=== PATIENT | female | born 1945 | race Caucasian/White ===

== ENCOUNTER 2018-12-12 10:18 | Emergency (ER) | payer MEDICARE ==
[2018-12-12 11:11] LABS: #Basophils 0.1 thou/uL (0.0-0.2); #Eosinphils 0.3 thou/uL (0.0-0.7); #Lymphocytes 2.6 thou/uL (1.20-3.40); #Monocytes 0.6 thou/uL (0.11-0.59); %Basophils 0.9 % (0.0-1.0); %Eosinophils 4.2 % (0.0-10.0); %Lymphocytes 34.4 % (21.0-51.0); %Monocytes 8.3 % (0.0-10.0); %Neutrophils 52.2 % (42.0-75.0); Hemoglobin 13.9 g/dL (12.0-16.0); Mean Corpuscular HGB CONC 33.7 g/dL (32.0-36.0); Mean Corpuscular Hemoglobin 30.9 pg (27.0-31.0); Mean Corpuscular Volume 91.5 fL (78.0-98.0); Platelet Count 259 thou/uL (130-400); RBC Distribution Width 11.9 % (11.5-14.5); White Blood Cell (WBC) Count 7.6 thou/uL (4.8-10.8)
--- NOTE | 2018-12-12 11:19 | RAD ---
EXAM: Chest Two Views 12/12/2018 11:16 AM HISTORY: Chest pain COMPARISON: Prior exam dated October 21, 2016 FINDINGS: Heart: Normal in size and contour. Pulmonary vessels: Normal. Costophrenic angles: Clear. Lungs: No confluent pneumonia, overt edema, pleural effusion, or other acute process. Pneumothorax: There is a skinfold overlying the right lower hemithorax on the AP projection. No defin ite pneumothorax is demonstrated. Osseous structures:There is multilevel spondylosis of the thoracic spine. There is postsurgical contreras e of a right rotator cuff repair. Additional findings: There is cholecystectomy clips within the right upper quadrant. IMPRESSION: No significant acute intrathoracic disease.
[2018-12-12 11:36] LABS: ALT (SGPT) 13 U/L (8-55); AST (SGOT) 14 U/L (5-34); Albumin 4.2 g/dL (3.4-4.8); Alkaline Phosphatase 73 U/L (40-110); Anion Gap 14 mmol/L (10-20); BUN (Urea Nitrogen) 19 mg/dL (9.8-20.1); Bilirubin, Total 0.6 mg/dL (0.2-1.2); CK (CPK) 73 U/L (29-168); Calc. Creatinine Clearance 0 mL/min (70-130); Calcium 9.9 mg/dL (7.8-10.44); Carbon Dioxide 21 mmol/L (23-31); Chloride 104 mmol/L (98-107); Estimated GFR-MDRD 53; Glucose 92 mg/dL (83-110); Potassium 4.4 mmol/L (3.5-5.1); Protein, Total 7.2 g/dL (6.0-8.3); Sodium 135 mmol/L (136-145)
== END 2018-12-12 16:00 | disposition home or self-care (01) ==
LOC: ERS 10:18
DX: R07.9 Chest pain, unspecified (principal); E78.5 Hyperlipidemia, unspecified; I10 Essential (primary) hypertension; F17.210 Nicotine dependence, cigarettes, uncomplicated; Z79.899 Other long term (current) drug therapy; Z79.82 Long term (current) use of aspirin
CPT/HCPCS: 36415; 71046; 80053; 82550; 84484; 85025; 93005

== ENCOUNTER 2019-01-11 05:54 | Day surgery (SDC) | payer MEDICARE ==
[2019-01-10 16:28] VITALS: BMI 36.8
[2019-01-11] MEDS ORDERED: Diazepam 5 MG TAB ONE (06:21)
[2019-01-11] MEDS ORDERED: Lidocaine 1% (PF) 30 ML VIAL ONE (06:40)
[2019-01-11] MEDS ORDERED: Nitroglycerin 100MG/250ML BOT 250 ML ONE (06:45)
[2019-01-11] MEDS ORDERED: Heparin 10,000 UNITS/1 ML VIAL ONE (06:46)
[2019-01-11] MEDS ORDERED: Verapamil 5 MG/2 ML VIAL ONE (06:48)
[2019-01-11] MEDS ORDERED: Fentanyl 100 MCG/2 ML VIAL ONE (06:48)
[2019-01-11] MEDS ORDERED: Midazolam HCl 2 mg/2 ml Vial ONE (06:48)
[2019-01-11] MEDS ORDERED: Iopamidol 370 76% 100 ML VIAL ONE (12:00)
== END 2019-01-11 10:08 | disposition home or self-care (01) ==
LOC: CCL 05:54
PROVIDERS: ATTEND Internal Medicine Cardiovascular Disease
PROC: 4A023N7 Measurement of Cardiac Sampling and Pressure, Left Heart, Percutaneous Approach (ICD-10-PCS; principal; 2019-01-11)
PROC: B2111ZZ Fluoroscopy of Multiple Coronary Arteries using Low Osmolar Contrast (ICD-10-PCS; 2019-01-11)
DX: I47.2 Ventricular tachycardia (principal); I27.20 Pulmonary hypertension, unspecified; I25.10 Atherosclerotic heart disease of native coronary artery without angina pectoris; I10 Essential (primary) hypertension; K21.9 Gastro-esophageal reflux disease without esophagitis; E78.5 Hyperlipidemia, unspecified; Z87.891 Personal history of nicotine dependence; Z79.82 Long term (current) use of aspirin; Z79.899 Other long term (current) drug therapy; Z88.8 Allergy status to other drugs, medicaments and biological substances
CPT/HCPCS: 93458; C1769; J1644; J2001; J2250; J3010; Q9967

== ENCOUNTER 2020-02-25 06:23 | Outpatient (CLI) | payer MEDICARE ==
[2020-02-25 11:29] LABS: Bilirubin Neg (Negative); Blood, Urine 25 (Negative); Clarity Slightly Cloudy (Clear); Glucose, Urine (Dipstick) Normal (Negative); Ketone, Urine Negative (Negative); Leukocyte 100 (Negative); Nitrite Positive (Negative); Protein, Urine (Dipstick) 15 mg/dl (Neg-Trace); Specific Gravity, Urine 1.025 (1.002-1.036); Urobilinogen Normal mg/dL (Less than 2)
[2020-02-25 11:32] LABS: #Basophils 0.1 10x3/uL (0.0-0.2); #Eosinphils 0.1 10x3/uL (0.0-0.5); #Monocytes 0.7 10x3/uL (0.0-1.1); #Neutrophils 4.1 10x3/uL (1.5-8.4); %Basophils 0.8 % (0.0-2.0); %Eosinophils 1.6 % (0.0-6.0); %Lymphocytes 32.9 % (18.0-47.0); %Monocytes 8.9 % (0.0-10.0); %Neutrophils 55.3 % (40.0-75.0); Mean Corpuscular Hemoglobin 30.6 PG (27.0-33.0); Mean Corpuscular Volume 95.6 fl (80.0-100.0); Mean Platelet Volume 9.8 fl (7.4-10.4); Platelet Count 243 10x3/uL (130-400); RBC Distribution Width 12.8 % (11.5-14.5); Red Blood Cell (RBC) Count 4.57 10x6/uL (3.90-5.20); White Blood Cell (WBC) Count 7.4 10x3/uL (4.5-11.0)
[2020-02-25 11:41] LABS: Anion Gap 15 mmol/L (10-20); BUN (Urea Nitrogen) 17 mg/dL (9.8-20.1); Calc. Creatinine Clearance 0 mL/min (70-130); Calcium 9.2 mg/dL (7.8-10.44); Carbon Dioxide 25 mmol/L (23-31); Chloride 107 mmol/L (98-107); Glucose 110 mg/dL (83-110); Potassium 4.2 mmol/L (3.5-5.1); Sodium 143 mmol/L (136-145)
[2020-02-25 12:18] LABS: Bacteria/HPF 3+ HPF (None Seen); WBC/HPF 21-50 HPF (0-3)
[2020-02-25 21:56] LABS: SARS-CoV-2 MS2 Positive; SARS-CoV-2 N Gene Negative; SARS-CoV-2 S Gene Negative; SARS-CoV-2 by NAA Not Detected (NotDetected); SARS-CoV-2 orf1ab Negative
== END 2020-02-25 06:24 | disposition home or self-care (01) ==
LOC: LABBT 06:23
PROVIDERS: ATTEND Orthopaedic Surgery Hand Surgery
DX: Z01.818 Encounter for other preprocedural examination (principal); Z01.812 Encounter for preprocedural laboratory examination; Z20.828 Contact with and (suspected) exposure to other viral communicable diseases; M18.11 Unilateral primary osteoarthritis of first carpometacarpal joint, right hand
CPT/HCPCS: 80048; 81001; 85025; 93005; U0003; 87635; 93010

== ENCOUNTER 2020-02-28 09:45 | Day surgery (SDC) | payer MEDICARE ==
[2020-02-27 13:37] VITALS: BMI 35.2
[2020-02-28] MEDS ORDERED: Fentanyl 100 MCG/2 ML VIAL ONE ×2 (10:01→10:17)
[2020-02-28] MEDS ORDERED: Bacitracin Zinc Ointment 30 gm TUBE ONE (10:15)
[2020-02-28] MEDS ORDERED: Betamet Acet/Betamet Na Ph 30 MG/5 ML VIAL ONE (10:15)
[2020-02-28] MEDS ORDERED: Sodium Chloride 0.9% 10 ML ONE (10:15)
[2020-02-28] MEDS ORDERED: Midazolam HCl 2 mg/2 ml Vial ONE (10:17)
[2020-02-28] MEDS ORDERED: Bupivacaine HCl 0.5%/Epinephrine 1:200,000/PF 30 ml Vial ONE (10:21)
[2020-02-28] MEDS ORDERED: PHENYLEPHRINE-NS 100 MCG/ML 10 ML SYRINGE ONE ×2 (10:21→12:18)
[2020-02-28] MEDS ORDERED: Ketorolac Tromethamine 30 MG/ML VIAL ONE (10:21)
[2020-02-28] MEDS ORDERED: Lidocaine 1% PF 5 ML VIAL ONE (10:21)
[2020-02-28] MEDS ORDERED: ePHEDrine 50 MG/ML VIAL ONE (10:21)
[2020-02-28] MEDS ORDERED: Ondansetron PF 4 MG/2 ML Vial ONE (10:21)
[2020-02-28] MEDS ORDERED: PROPOFOL 200 MG/20 ML VIAL ONE (10:21)
[2020-02-28] MEDS ORDERED: Dexamethasone 20 MG/5 ML VIAL ONE (10:21)
--- NOTE | 2020-02-28 14:24 | RAD ---
EXAM: 5 fluoroscopic intraoperative spot images of the right wrist DATE: 02/28/2020 12:21 PM INDICATION: Right wrist arthroplasty COMPARISON: None. FINDIN submitted fluoroscopic spot images of the right wrist from an intraoperative right wrist arthroplasty was submitted. The total fluoroscopic time was 42 seconds. Submitted images demonstrate wire cannulization of the thumb and index finger metacarpal with an interval trapeziectom y. IMPRESSION:Intraoperative C-arm evaluation for first CMC arthroplasty
--- NOTE | 2020-03-02 14:20 | OP ---
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 Flexor carpi radialis transfer, forearm. 2. Ligament reconstruction and tendon interposition with carpometacarpal right thumb arthroplasty. 3. C-arm supervision. TOURNIQUET TIME: 117 minutes. ESTIMATED BLOOD LOSS: 20 mL. COMPLICATIONS: None. DESCRIPTION OF PROCEDURE: After successful general endotracheal anesthesia, the limb was prepped and draped. The patient also had a block. The patient had the standard harvest incisions for the flexor carpi radialis and the tendon transfer outlined obliquely along its course in the distal-third and mid-third of the forearm, left side. We outlined a J-shaped curvilinear incision at the junction of the palmar and dorsal skin over the thumb carpometacarpal joint. The tourniquet was inflated. We carried this incision through skin and subcutaneous tissue and obtained the interval between the median nerve and radial nerve distributions, sparing the superficial radial nerve branches on visualization. We then made an incision between the abductor and the short extensor on the capsule, tagged this capsule with an incision and then dissected free the capsule and thenar muscle insertions to protect them for later. We also exposed the entire thumb CMC joint where we saw over 80% loss of chondral surface on both sides with large marginal osteophytes seen on both sides of the joint and sclerosis, which eventually would lead to more pain. For this reason, we dissected free of all soft tissue around the trapezium, we did a complete trapeziectomy. We then localized the flexor carpi radialis tendon within the wrist, protected it from harm as we the trapezium. We then placed the posterior capsule on the ulnar aspect of the thumb was utilized to place a deep 3-0 Prolene suture for later use to anchor the anchovy for weave interposition techniques of flexor carpi radialis transfer. We then removed all osteophytes from the thumb metacarpal base, rotated the thumb with the fingernail/nail bed parallel to the table and then visualized and protected the extensor brevis and the superficial radial nerve branch. We drilled a cannulated guidewire obliquely in approximately a 60-degree angle from the lateral wall into the junction of the chondral and metaphyseal surface point, it was a flexor carpi radialis insertion. We confirmed this was excellent in frontal and sagittal planes and then we began to drill over this. First, we drilled a 2.5 cm, then 3.5 cm hole and then removed all debris inside. We then proceeded to harvest the flexor carpi radialis tendon to the 2 incisions outlined in the first portion of this operative description. We elevated it, we freed up the whole flexor carpi radialis, denuded of all muscle and then pulled it into the wrist. At this point, the tendon was further prepared and we removed approximately 20% of the tendon mass in a longitudinal incision and then we were able to pass it through the tunnel in the thumb that passes underneath the extensor and into the remnant of the old carpometacarpal joint, but the trapezium was gone. There were no scaphoid osteophytes. Scaphoid is now covered. We then under appropriate tension, kept on the tendon construct to the base of the metacarpal. We were able to place 2 K-wires in the carpometacarpal articulation without violation of any soft tissue structures. C-arm confirmed this and we bent the wires and kept them protruding just slightly under the skin. We then tied the anchovy of K-wire and pin and then tightened two sutures on the sidewall of the thumb. The patient then had the appropriately tense and now appropriate position via C-arm. Base of the thumb carpometacarpal had multiple sutures passed to the sidewall of the base of the thumb remnant, the chondral surface on the scaphoid, the base of the thumb metacarpal. We made sure at this point that the suture harvested FCR now had enough to be placed in anchovy position and we tied the FCR in 6 [address] to prevent migration and create a cushion effect. We then performed the anchovy with Joshua needles and 3-0 Prolene, we tied the 3-0 Prolene that was already in the patient from earlier during the and released the tourniquet. We obtained hemostasis. We closed the capsule of the scaphotrapezium on itself which explains the excellent tension. The anchovy was completed and it was tied. Hemostasis was completely obtained, we closed the joint capsule of the carpometacarpal joint remnant with running 2-0 Vicryl as we did the portion of the remaining . The incision was now closed by first reapproximating the capsular structures to their appropriate origin while we still had the musculofascial insertion attached. Once this was closed, the wire was reaffirmed on C-arm to be in excellent position, it was bent and pushed in slightly. Same as it had been . A bulky dressing was applied and the wounds at the forearm were closed with interrupted 4-0 nylon and the patient left the operating room without evidence of anesthetic or operative complication. Job ID: [id number]
== END 2020-02-28 16:20 | disposition home or self-care (01) ==
LOC: SDC 09:45
PROVIDERS: ATTEND Orthopaedic Surgery Hand Surgery
PROC: 0LU607Z Supplement Left Lower Arm and Wrist Tendon with Autologous Tissue Substitute, Open Approach (ICD-10-PCS; principal; 2020-02-28)
PROC: 0RRT07Z Replacement of Left Carpometacarpal Joint with Autologous Tissue Substitute, Open Approach (ICD-10-PCS; 2020-02-28)
DX: M18.0 Bilateral primary osteoarthritis of first carpometacarpal joints (principal); F17.200 Nicotine dependence, unspecified, uncomplicated; I10 Essential (primary) hypertension; Z79.01 Long term (current) use of anticoagulants; Z79.82 Long term (current) use of aspirin; Z79.899 Other long term (current) drug therapy; Z88.8 Allergy status to other drugs, medicaments and biological substances
CPT/HCPCS: 25310; 25447; 73110; 76000; 88307; 88311; C1713; J0690; J0702; J1100; J1885; J2250; J2405; J2704; J3010; J3490

== ENCOUNTER 2020-12-21 10:05 | Outpatient (CLI) | payer MEDICARE | END 2020-12-21 10:06 | disposition home or self-care (01) | LOC: CTENTCT 10:05 | PROVIDERS: ATTEND Student in an Organized Health Care Education/Training Program | DX: J34.2 Deviated nasal septum (principal) | CPT/HCPCS: 70486 ==

== ENCOUNTER 2021-07-24 22:05 | Observation (INO) | payer MEDICARE ==
[2021-07-24] MEDS ORDERED: Acetaminophen 650 MG Suppository PR PRN (22:31)
[2021-07-24] MEDS ORDERED: Acetaminophen 325 MG TAB PO PRN (22:31)
[2021-07-24] MEDS ORDERED: Ondansetron PF 4 MG/2 ML Vial IVP PRN (22:31)
[2021-07-24] MEDS ORDERED: Ondansetron ODT 4 MG TAB PO PRN (22:31)
[2021-07-24] MEDS ORDERED: Aspirin 81 mg Enteric Coated Tablet PO SCH (22:45)
[2021-07-24 23:28] VITALS: BMI 38.2
[2021-07-25] MEDS ORDERED: tiZANidine HCl 4 MG TAB PO PRN (00:05)
[2021-07-25] MEDS ORDERED: Topiramate 25 MG TAB PO PRN (00:05)
[2021-07-25] MEDS ORDERED: traMADol HCl 50 MG TAB PO PRN (00:05)
[2021-07-25] MEDS ORDERED: Apixaban 5 MG TAB PO SCH (00:15)
[2021-07-25] MEDS ORDERED: Dronedarone HCl 400 MG TAB PO SCH (00:15)
[2021-07-25 05:22] LABS: #Eosinphils 0.2 thou/uL (0.0-0.7); #Monocytes 0.8 thou/uL (0.11-0.59); #Neutrophils 3.5 thou/uL (1.40-6.50); %Basophils 0.5 % (0.0-1.0); %Eosinophils 3.3 % (0.0-10.0); %Lymphocytes 39.7 % (21.0-51.0); %Monocytes 10.9 % (0.0-10.0); %Neutrophils 45.6 % (42.0-75.0); Hemoglobin 13.5 g/dL (12.0-16.0); Mean Corpuscular HGB CONC 32.3 g/dL (32.0-36.0); Mean Corpuscular Hemoglobin 31.6 pg (27.0-31.0); Mean Corpuscular Volume 97.9 fL (78.0-98.0); Mean Platelet Volume 7.1 fL (7.4-10.4); Platelet Count 231 thou/uL (130-400); RBC Distribution Width 12.2 % (11.5-14.5); Red Blood Cell (RBC) Count 4.26 mill/uL (4.20-5.40); White Blood Cell (WBC) Count 7.6 thou/uL (4.8-10.8)
[2021-07-25 05:47] LABS: Anion Gap 14 mmol/L (10-20); BUN (Urea Nitrogen) 13 mg/dL (9.8-20.1); Calc. Creatinine Clearance 78 mL/min (70-130); Calcium 9.1 mg/dL (7.8-10.44); Carbon Dioxide 26 mmol/L (23-31); Cardiac Risk 2.8 (Less than 4.5); Chloride 108 mmol/L (98-107); Cholesterol 139 mg/dl (< 200 Desired); Glucose 91 mg/dL (83-110); HDL Cholesterol 50 mg/dL (>60 Neg Risk); LDL Cholesterol, Calculated 65 mg/dL; Sodium 143 mmol/L (136-145); Triglycerides 122 mg/dL (Less than 150)
[2021-07-25 07:54] LABS: Hemoglobin A1c 5.2 % (4.0-6.0)
[2021-07-25] MEDS ORDERED: Aspirin 81 mg Enteric Coated Tablet PO SCH (09:00)
[2021-07-25] MEDS: Apixaban 5 MG TAB PO SCH ×2 (09:24→21:54)
[2021-07-25] MEDS: Ascorbic Acid 500 mg Chewable Tablet PO SCH (09:24)
[2021-07-25] MEDS: Dronedarone HCl 400 MG TAB PO SCH ×2 (09:25→21:56)
[2021-07-25] MEDS: Aspirin 81 mg Enteric Coated Tablet PO SCH (09:25)
[2021-07-25] MEDS: Venlafaxine HCl XR 150 MG CAP PO SCH ×2 (09:26→21:54)
[2021-07-25] MEDS: Cholecalciferol (Vitamin D3) 400 UNITS TAB PO SCH (09:26)
[2021-07-25] MEDS ORDERED: Atorvastatin Calcium 40 MG TAB PO SCH (21:00)
[2021-07-25 22:39] LABS: SARS-CoV-2 PCR by NAA Not Detected (NotDetected)
[2021-07-26 08:15] VITALS: BP 140/81; TEMP 98.2
[2021-07-26] MEDS: Venlafaxine HCl XR 150 MG CAP PO SCH (09:24)
[2021-07-26] MEDS: Apixaban 5 MG TAB PO SCH (09:24)
[2021-07-26] MEDS: Ascorbic Acid 500 mg Chewable Tablet PO SCH (09:24)
[2021-07-26] MEDS: Dronedarone HCl 400 MG TAB PO SCH (09:24)
[2021-07-26] MEDS: Aspirin 81 mg Enteric Coated Tablet PO SCH (09:24)
[2021-07-26] MEDS: Cholecalciferol (Vitamin D3) 400 UNITS TAB PO SCH (09:24)
== END 2021-07-26 11:05 | disposition home or self-care (01) ==
LOC: NEURO 22:05
PROVIDERS: ADMIT Family Medicine; ATTEND Family Medicine
DX: H53.2 Diplopia (principal); I48.91 Unspecified atrial fibrillation; R40.0 Somnolence; I11.9 Hypertensive heart disease without heart failure; E78.5 Hyperlipidemia, unspecified; F17.210 Nicotine dependence, cigarettes, uncomplicated; I08.1 Rheumatic disorders of both mitral and tricuspid valves; Z79.899 Other long term (current) drug therapy; Z88.8 Allergy status to other drugs, medicaments and biological substances; Z20.822 Contact with and (suspected) exposure to COVID-19
CPT/HCPCS: 70551; 80048; 80061; 83036; 84443; 85025; 93005; 93306; G0378 ×3; U0003; U0005; 36415; 93010

== ENCOUNTER 2021-09-30 10:13 | Outpatient (CLI) | payer MEDICARE | END 2021-09-30 10:14 | disposition home or self-care (01) | LOC: BICRAD 10:13 | PROVIDERS: ATTEND Internal Medicine | DX: I48.19 Other persistent atrial fibrillation (principal) | CPT/HCPCS: 71046 ==

== ENCOUNTER 2021-10-01 06:01 | Day surgery (SDC) | payer MEDICARE ==
[2021-09-29 14:34] VITALS: BMI 35.9
[2021-10-01] MEDS ORDERED: PROPOFOL 20 ML ONE (06:50)
[2021-10-01] MEDS ORDERED: Lidocaine 1% PF 5 ML VIAL ONE (07:13)
[2021-10-01 07:16] LABS: Anion Gap 19 mmol/L (10-20); BUN (Urea Nitrogen) 17 mg/dL (9.8-20.1); Calc. Creatinine Clearance 70 mL/min (70-130); Calcium 9.3 mg/dL (7.8-10.44); Carbon Dioxide 20 mmol/L (23-31); Chloride 106 mmol/L (98-107); Estimated GFR 54; Glucose 104 mg/dL (83-110); Potassium 3.8 mmol/L (3.5-5.1); Sodium 141 mmol/L (136-145)
== END 2021-10-01 08:45 | disposition home or self-care (01) ==
LOC: SDC 06:01
PROVIDERS: ATTEND Internal Medicine Cardiovascular Disease
PROC: 5A2204Z Restoration of Cardiac Rhythm, Single (ICD-10-PCS; principal; 2021-10-01)
DX: I48.19 Other persistent atrial fibrillation (principal); I25.10 Atherosclerotic heart disease of native coronary artery without angina pectoris; I10 Essential (primary) hypertension; E78.5 Hyperlipidemia, unspecified; K21.9 Gastro-esophageal reflux disease without esophagitis; Z79.01 Long term (current) use of anticoagulants; Z79.82 Long term (current) use of aspirin; Z79.899 Other long term (current) drug therapy; Z88.8 Allergy status to other drugs, medicaments and biological substances; Z86.73 Personal history of transient ischemic attack (TIA), and cerebral infarction without residual deficits
CPT/HCPCS: 80048; 92960; 93005; 93010; J2704

== ENCOUNTER 2022-02-15 08:13 | Observation (INO) | payer MEDICARE ==
[2022-02-15] MEDS ORDERED: Acetaminophen 500 MG TAB ONE (09:02)
[2022-02-15] MEDS ORDERED: Protamine Sulfate 50 MG/5 ML VIAL ONE (10:59)
[2022-02-15] MEDS ORDERED: Heparin 25,000 units/D5W 500 ML ONE (11:00)
[2022-02-15] MEDS ORDERED: Heparin 10,000 UNITS/ 10 ML VIAL ONE (11:00)
[2022-02-15] MEDS ORDERED: fentaNYL PF 100 MCG/2 ML SYRINGE ONE (11:25)
[2022-02-15] MEDS ORDERED: Phenylephrine 10 MG/ML VIAL ONE (11:30)
[2022-02-15] MEDS ORDERED: Rocuronium Bromide 10 MG/ML (10ML VIAL) ONE (11:30)
[2022-02-15] MEDS ORDERED: Dexamethasone 20 MG/5 ML VIAL ONE (11:30)
[2022-02-15] MEDS ORDERED: PROPOFOL 200 MG/20 ML VIAL ONE (11:30)
[2022-02-15] MEDS ORDERED: Ondansetron PF 4 MG/2 ML Vial ONE (11:30)
[2022-02-15] MEDS ORDERED: NEOSTIGMINE 3 MG/3 ML SYR 3 MG/3 ML SYRINGE ONE (11:30)
[2022-02-15] MEDS ORDERED: Glycopyrrolate 0.2 MG/ML 5 ML SYRINGE ONE (11:30)
[2022-02-15] MEDS ORDERED: HYDROcodone/Acetaminophen 5/325 mg Tablet PO PRN (17:03)
[2022-02-15] MEDS ORDERED: Acetaminophen 325 MG TAB PO PRN (17:03)
[2022-02-15] MEDS ORDERED: HYDROcodone/Acetaminophen 10/325 mg Tablet PO PRN (17:04)
[2022-02-15] MEDS ORDERED: cloNIDine 0.1 MG TAB PO PRN (17:22)
[2022-02-15] MEDS ORDERED: tiZANidine HCl 4 MG TAB PO PRN (17:26)
[2022-02-15] MEDS ORDERED: Topiramate 25 MG TAB PO PRN (17:27)
[2022-02-15 18:34] VITALS: BMI 38.0
[2022-02-15] MEDS: Venlafaxine HCl XR 150 MG CAP PO SCH (20:04)
[2022-02-15] MEDS: Apixaban 5 MG TAB PO SCH (20:04)
[2022-02-15] MEDS ORDERED: Atorvastatin Calcium 40 MG TAB PO SCH (21:00)
[2022-02-15] MEDS ORDERED: Aspirin 81 mg Enteric Coated Tablet PO SCH (21:00)
[2022-02-15] MEDS: traMADol HCl 50 MG TAB PO PRN (21:48)
[2022-02-16] MEDS: traMADol HCl 50 MG TAB PO PRN (06:00)
[2022-02-16] MEDS ORDERED: Furosemide 40 MG TAB PO SCH (09:00)
[2022-02-16] MEDS ORDERED: Potassium Chloride 20 MEQ TAB PO SCH (09:00)
[2022-02-16] MEDS ORDERED: Ascorbic Acid 500 mg Chewable Tablet PO SCH (09:00)
[2022-02-16] MEDS ORDERED: Cholecalciferol (Vitamin D3) 400 UNITS TAB PO SCH (09:00)
[2022-02-16] MEDS ORDERED: Metoprolol Tartrate 25 MG TAB PO SCH (09:00)
[2022-02-16] MEDS: Apixaban 5 MG TAB PO SCH (09:02)
[2022-02-16] MEDS: Venlafaxine HCl XR 150 MG CAP PO SCH (09:02)
[2022-02-16 10:03] LABS: Hemoglobin 12.6 g/dL (12.0-16.0); Mean Corpuscular HGB CONC 32.5 g/dL (32.0-36.0); Mean Corpuscular Hemoglobin 32.2 pg (27.0-31.0); Mean Corpuscular Volume 98.9 fl (78.0-98.0); Mean Platelet Volume 7.3 fL (7.4-10.4); Platelet Count 236 10x3/uL (130-400); RBC Distribution Width 13.1 % (11.5-14.5); Red Blood Cell (RBC) Count 3.92 mill/uL (4.20-5.40); White Blood Cell (WBC) Count 12.8 10x3/uL (4.8-10.8)
[2022-02-16 11:38] VITALS: BP 129/60; TEMP 97.6
== END 2022-02-16 14:05 | disposition home or self-care (01) ==
LOC: SDC 08:13 → 2SW 18:38
PROVIDERS: ADMIT Internal Medicine Cardiovascular Disease; ATTEND Internal Medicine Cardiovascular Disease
PROC: B246ZZ4 Ultrasonography of Right and Left Heart, Transesophageal (ICD-10-PCS; principal; 2022-02-15)
PROC: 02583ZZ Destruction of Conduction Mechanism, Percutaneous Approach (ICD-10-PCS; 2022-02-15)
PROC: 02K83ZZ Map Conduction Mechanism, Percutaneous Approach (ICD-10-PCS; 2022-02-15)
PROC: 4A023FZ Measurement of Cardiac Rhythm, Percutaneous Approach (ICD-10-PCS; 2022-02-15)
PROC: 4A0234Z Measurement of Cardiac Electrical Activity, Percutaneous Approach (ICD-10-PCS; 2022-02-15)
DX: I48.0 Paroxysmal atrial fibrillation (principal); I48.3 Typical atrial flutter; I08.1 Rheumatic disorders of both mitral and tricuspid valves; I11.9 Hypertensive heart disease without heart failure; I47.20 Ventricular tachycardia, unspecified; E78.5 Hyperlipidemia, unspecified; I25.10 Atherosclerotic heart disease of native coronary artery without angina pectoris; K21.9 Gastro-esophageal reflux disease without esophagitis; F17.210 Nicotine dependence, cigarettes, uncomplicated; Z79.01 Long term (current) use of anticoagulants; Z79.82 Long term (current) use of aspirin; Z79.899 Other long term (current) drug therapy; Z88.8 Allergy status to other drugs, medicaments and biological substances; Z90.49 Acquired absence of other specified parts of digestive tract; Z95.818 Presence of other cardiac implants and grafts; Z20.822 Contact with and (suspected) exposure to COVID-19
CPT/HCPCS: 85027; 85347 ×2; 93005 ×2; 93312; 93655; 93656; C1730; C1731; C1732; C1759; C1760; C1769 ×2; C1894 ×2; C2630; U0003; U0005; 36415; 93010; J1100; J1644; J2370; J2405; J2704; J2720

== ENCOUNTER 2022-07-07 06:08 | Day surgery (SDC) | payer MEDICARE ==
[2022-07-06 10:51] VITALS: BMI 35.3
[2022-07-07] MEDS ORDERED: Lidocaine 1% PF 5 ML VIAL ONE (07:24)
[2022-07-07] MEDS ORDERED: PROPOFOL 200 MG/20 ML VIAL ONE (07:24)
== END 2022-07-07 08:29 | disposition home or self-care (01) ==
LOC: SDC 06:08
PROVIDERS: ATTEND Internal Medicine Cardiovascular Disease
PROC: 5A2204Z Restoration of Cardiac Rhythm, Single (ICD-10-PCS; principal; 2022-07-07)
DX: I48.4 Atypical atrial flutter (principal); I48.19 Other persistent atrial fibrillation; I10 Essential (primary) hypertension; E78.5 Hyperlipidemia, unspecified; K21.9 Gastro-esophageal reflux disease without esophagitis; I25.10 Atherosclerotic heart disease of native coronary artery without angina pectoris; F17.200 Nicotine dependence, unspecified, uncomplicated; Z86.73 Personal history of transient ischemic attack (TIA), and cerebral infarction without residual deficits; Z79.01 Long term (current) use of anticoagulants; Z79.82 Long term (current) use of aspirin; Z79.899 Other long term (current) drug therapy; Z88.8 Allergy status to other drugs, medicaments and biological substances; Z95.818 Presence of other cardiac implants and grafts
CPT/HCPCS: 92960; 93005; 93010; J2704

== ENCOUNTER 2022-11-29 17:00 | Outpatient (CLI) | payer MEDICARE | END 2022-11-29 17:01 | disposition home or self-care (01) | LOC: SLEEPLAB 17:00 | PROVIDERS: ATTEND Physician Assistant | DX: G47.33 Obstructive sleep apnea (adult) (pediatric) (principal); R53.83 Other fatigue; E66.9 Obesity, unspecified; R06.83 Snoring; F41.9 Anxiety disorder, unspecified; G47.00 Insomnia, unspecified; F32.A Depression, unspecified; I11.0 Hypertensive heart disease with heart failure; I50.9 Heart failure, unspecified; K21.9 Gastro-esophageal reflux disease without esophagitis; I25.10 Atherosclerotic heart disease of native coronary artery without angina pectoris; I48.0 Paroxysmal atrial fibrillation; E78.5 Hyperlipidemia, unspecified; I83.90 Asymptomatic varicose veins of unspecified lower extremity; I47.20 Ventricular tachycardia, unspecified; I49.3 Ventricular premature depolarization; Z68.34 Body mass index [BMI] 34.0-34.9, adult | CPT/HCPCS: 95810 ==

== ENCOUNTER 2023-01-10 17:00 | Outpatient (CLI) | payer MEDICARE | END 2023-01-10 17:01 | disposition home or self-care (01) | LOC: SLEEPLAB 17:00 | PROVIDERS: ATTEND Physician Assistant | DX: G47.33 Obstructive sleep apnea (adult) (pediatric) (principal); R53.83 Other fatigue; E66.9 Obesity, unspecified; R06.83 Snoring; F41.9 Anxiety disorder, unspecified; G47.00 Insomnia, unspecified; F32.A Depression, unspecified; I11.0 Hypertensive heart disease with heart failure; I50.9 Heart failure, unspecified; I49.9 Cardiac arrhythmia, unspecified; G47.10 Hypersomnia, unspecified; I49.1 Atrial premature depolarization; I49.3 Ventricular premature depolarization; Z68.34 Body mass index [BMI] 34.0-34.9, adult | CPT/HCPCS: 95811 ==

== ENCOUNTER 2023-04-09 14:08 | Observation (INO) | payer MEDICARE ==
[2023-04-09 16:25] LABS: #Basophils 0.1 thou/uL (0.0-0.2); #Eosinphils 0.3 thou/uL (0.0-0.7); #Monocytes 0.7 thou/uL (0.11-0.59); #Neutrophils 5.3 thou/uL (1.40-6.50); %Basophils 0.5 % (0.0-1.0); %Eosinophils 2.8 % (0.0-10.0); %Lymphocytes 31.5 % (21.0-51.0); %Monocytes 7.9 % (0.0-10.0); Hematocrit 42.1 % (36.0-47.0); Hemoglobin 13.8 g/dL (12.0-16.0); Mean Corpuscular HGB CONC 32.8 g/dL (32.0-36.0); Mean Corpuscular Volume 94.6 fl (78.0-98.0); Mean Platelet Volume 9.9 fL (7.4-10.4); Platelet Count 234 10x3/uL (130-400); RBC Distribution Width 13.7 % (11.5-14.5); Red Blood Cell (RBC) Count 4.45 mill/uL (4.20-5.40); White Blood Cell (WBC) Count 9.2 10x3/uL (4.8-10.8)
[2023-04-09 16:50] LABS: ALT (SGPT) 16 U/L (8-55); AST (SGOT) 13 U/L (5-34); Albumin 3.9 g/dL (3.4-4.8); Alkaline Phosphatase 85 U/L (40-110); Anion Gap 11 mmol/L (10-20); BUN (Urea Nitrogen) 21 mg/dL (9.8-20.1); Bilirubin, Total 0.6 mg/dL (0.2-1.2); Calc. Creatinine Clearance 0 mL/min (70-130); Calcium 8.8 mg/dL (7.8-10.44); Carbon Dioxide 22 mmol/L (23-31); Chloride 110 mmol/L (98-107); Estimated GFR 58; Globulin 2.6 g/dL (2.4-3.5); Glucose 105 mg/dL (83-110); Potassium 4.4 mmol/L (3.5-5.1); Protein, Total 6.5 g/dL (5.8-8.1); Sodium 139 mmol/L (136-145)
[2023-04-09 16:54] LABS: Troponin I 0.027 ng/mL (< 0.028)
[2023-04-09 19:56] VITALS: BMI 33.3
[2023-04-09] MEDS ORDERED: Acetaminophen 325 MG TAB PO PRN (20:00)
[2023-04-09] MEDS ORDERED: Ondansetron PF 4 MG/2 ML Vial IVP PRN (20:00)
[2023-04-09] MEDS ORDERED: HYDROcodone/Acetaminophen 5/325 mg Tablet PO PRN ×2 (20:00)
[2023-04-09 20:10] LABS: Troponin I 0.018 ng/mL (< 0.028)
[2023-04-09] MEDS ORDERED: Atorvastatin Calcium 40 MG TAB PO SCH (21:00)
[2023-04-09] MEDS ORDERED: Aspirin 81 mg Enteric Coated Tablet PO SCH (21:00)
[2023-04-09 23:20] LABS: Troponin I 0.012 ng/mL (< 0.028)
[2023-04-10 08:29] LABS: Bacteria/HPF 1+ HPF (None Seen); Bilirubin Negative (Negative); Blood, Urine Negative (Negative); CAUTI Indications for Culture Dysuria,urgency,freq; Clarity Clear (Clear); Glucose, Urine (Dipstick) Normal (Negative); Ketone, Urine Negative (Negative); Leukocyte Negative Leu/uL (Negative); Nitrite Negative (Negative); Protein, Urine (Dipstick) Negative (Neg-Trace); RBC/HPF 0-3 HPF (0-3); Specific Gravity, Urine 1.028 (1.002-1.036); Squamous Epithelial 0-3 HPF (0-3); Urobilinogen Normal mg/dL (Less than 2); WBC/HPF 0-3 HPF (0-3)
[2023-04-10 08:30] LABS: Urine Culture Reflex No No
[2023-04-10] MEDS ORDERED: Enoxaparin 100 MG (1 mL) SYRINGE SC SCH (09:00)
[2023-04-10] MEDS ORDERED: Amiodarone 200 MG TAB PO SCH (09:00)
[2023-04-10 09:34] LABS: #Eosinphils 0.2 thou/uL (0.0-0.7); #Monocytes 0.5 thou/uL (0.11-0.59); #Neutrophils 4.1 thou/uL (1.40-6.50); %Basophils 0.5 % (0.0-1.0); %Eosinophils 3.1 % (0.0-10.0); %Monocytes 6.6 % (0.0-10.0); %Neutrophils 52.5 % (42.0-75.0); Hematocrit 41.9 % (36.0-47.0); Hemoglobin 13.3 g/dL (12.0-16.0); Mean Corpuscular HGB CONC 31.7 g/dL (32.0-36.0); Mean Corpuscular Hemoglobin 30.1 pg (27.0-31.0); Mean Corpuscular Volume 94.8 fl (78.0-98.0); Platelet Count 237 10x3/uL (130-400); RBC Distribution Width 13.6 % (11.5-14.5); Red Blood Cell (RBC) Count 4.42 mill/uL (4.20-5.40); White Blood Cell (WBC) Count 7.9 10x3/uL (4.8-10.8)
[2023-04-10 09:52] LABS: Anion Gap 12 mmol/L (10-20); BUN (Urea Nitrogen) 18 mg/dL (9.8-20.1); Calc. Creatinine Clearance 84 mL/min (70-130); Calcium 8.8 mg/dL (7.8-10.44); Carbon Dioxide 22 mmol/L (23-31); Chloride 108 mmol/L (98-107); Estimated GFR 74; Glucose 98 mg/dL (83-110); Potassium 4.1 mmol/L (3.5-5.1); Sodium 138 mmol/L (136-145)
[2023-04-10 12:01] LABS: Troponin I Less than 0.010 ng/mL (< 0.028)
[2023-04-10 13:31] VITALS: BP 139/82; TEMP 97.5
[2023-04-11] MEDS ORDERED: Dronedarone HCl 400 MG TAB PO SCH (18:45)
[2023-04-11] MEDS ORDERED: Venlafaxine HCl XR 150 MG CAP PO SCH (21:00)
[2023-04-11] MEDS ORDERED: Metoprolol Tartrate 25 MG TAB PO SCH (21:00)
[2023-04-12] MEDS ORDERED: Dronedarone HCl 400 MG TAB PO SCH (08:00)
== END 2023-04-10 14:50 | disposition home or self-care (01) ==
LOC: ERS 14:08 → 2SW 17:27
PROVIDERS: ADMIT Internal Medicine; ATTEND Internal Medicine
DX: I48.0 Paroxysmal atrial fibrillation (principal); I25.10 Atherosclerotic heart disease of native coronary artery without angina pectoris; K21.9 Gastro-esophageal reflux disease without esophagitis; I10 Essential (primary) hypertension; E78.5 Hyperlipidemia, unspecified; Z79.82 Long term (current) use of aspirin; Z79.899 Other long term (current) drug therapy; Z88.8 Allergy status to other drugs, medicaments and biological substances; Z86.73 Personal history of transient ischemic attack (TIA), and cerebral infarction without residual deficits; Z96.651 Presence of right artificial knee joint; Z98.890 Other specified postprocedural states
CPT/HCPCS: 71045; 80048; 81001; 83880; 84484 ×3; 85025; 93005 ×2; 94760; G0378 ×3; 36415; 36416; 80053; 84443; 93010

== ENCOUNTER 2023-04-11 15:36 | Observation (INO) | payer MEDICARE ==
[2023-04-11 16:48] LABS: #Basophils 0.1 thou/uL (0.0-0.2); #Eosinphils 0.2 thou/uL (0.0-0.7); #Monocytes 0.8 thou/uL (0.11-0.59); %Basophils 0.5 % (0.0-1.0); %Eosinophils 2.4 % (0.0-10.0); %Lymphocytes 34.6 % (21.0-51.0); %Monocytes 8.3 % (0.0-10.0); %Neutrophils 53.7 % (42.0-75.0); Hematocrit 42.1 % (36.0-47.0); Hemoglobin 13.6 g/dL (12.0-16.0); Mean Corpuscular HGB CONC 32.3 g/dL (32.0-36.0); Mean Corpuscular Hemoglobin 31.5 pg (27.0-31.0); Mean Corpuscular Volume 97.5 fl (78.0-98.0); Platelet Count 168 10x3/uL (130-400); RBC Distribution Width 13.7 % (11.5-14.5); Red Blood Cell (RBC) Count 4.32 mill/uL (4.20-5.40); White Blood Cell (WBC) Count 9.4 10x3/uL (4.8-10.8)
[2023-04-11 17:23] LABS: ALT (SGPT) 17 U/L (8-55); AST (SGOT) 13 U/L (5-34); Albumin 3.8 g/dL (3.4-4.8); Alkaline Phosphatase 84 U/L (40-110); Anion Gap 9 mmol/L (10-20); BUN (Urea Nitrogen) 16 mg/dL (9.8-20.1); Bilirubin, Total 0.5 mg/dL (0.2-1.2); Calc. Creatinine Clearance 0 mL/min (70-130); Calcium 8.4 mg/dL (7.8-10.44); Carbon Dioxide 24 mmol/L (23-31); Chloride 113 mmol/L (98-107); Estimated GFR 57; Globulin 2.6 g/dL (2.4-3.5); Glucose 83 mg/dL (83-110); Magnesium 1.7 mg/dL (1.6-2.6); Potassium 4.1 mmol/L (3.5-5.1); Protein, Total 6.4 g/dL (5.8-8.1); Sodium 142 mmol/L (136-145)
[2023-04-11 17:24] LABS: Troponin I 0.011 ng/mL (< 0.028)
[2023-04-11] MEDS ORDERED: Senokot S 8.6-50 MG TAB PO PRN (18:43)
[2023-04-11] MEDS ORDERED: Ondansetron ODT 4 MG TAB PO PRN (18:43)
[2023-04-11] MEDS ORDERED: Calcium Carbonate 500 MG ChewTAB PO PRN (18:43)
[2023-04-11] MEDS ORDERED: Magnesium 2 GM/50 ML(in water) 2 GM in Premix 1 BAG IVPB SCH (18:45)
[2023-04-11] MEDS ORDERED: Dronedarone HCl 400 MG TAB PO SCH (21:00)
[2023-04-11 22:11] VITALS: BMI 32.9
[2023-04-11] MEDS: Atorvastatin Calcium 40 MG TAB PO SCH (22:36)
[2023-04-11] MEDS: Famotidine 20 MG TAB PO SCH (22:36)
[2023-04-11] MEDS: Aspirin 81 mg Enteric Coated Tablet PO SCH (22:37)
[2023-04-11] MEDS: Metoprolol Tartrate 25 MG TAB PO SCH (22:37)
[2023-04-11] MEDS: Venlafaxine HCl XR 150 MG CAP PO SCH (22:37)
[2023-04-11] MEDS: Acetaminophen 325 MG TAB PO PRN (22:37)
[2023-04-12 05:46] LABS: #Eosinphils 0.2 thou/uL (0.0-0.7); #Monocytes 0.6 thou/uL (0.11-0.59); #Neutrophils 6.5 thou/uL (1.40-6.50); %Basophils 0.4 % (0.0-1.0); %Eosinophils 2.7 % (0.0-10.0); %Neutrophils 71.5 % (42.0-75.0); Hematocrit 42.4 % (36.0-47.0); Hemoglobin 13.8 g/dL (12.0-16.0); Mean Corpuscular HGB CONC 32.5 g/dL (32.0-36.0); Mean Corpuscular Hemoglobin 30.7 pg (27.0-31.0); Platelet Count 216 10x3/uL (130-400); White Blood Cell (WBC) Count 9.1 10x3/uL (4.8-10.8)
[2023-04-12 05:54] LABS: Mean Corpuscular Volume 94.2 fl (78.0-98.0)
[2023-04-12 06:09] LABS: Anion Gap 11 mmol/L (10-20); BUN (Urea Nitrogen) 17 mg/dL (9.8-20.1); Calc. Creatinine Clearance 85 mL/min (70-130); Carbon Dioxide 21 mmol/L (23-31); Chloride 111 mmol/L (98-107); Estimated GFR 76; Glucose 100 mg/dL (83-110); Potassium 4.4 mmol/L (3.5-5.1); Sodium 139 mmol/L (136-145)
[2023-04-12] MEDS: Metoprolol Tartrate 25 MG TAB PO SCH ×2 (15:46→22:01)
[2023-04-12] MEDS: Famotidine 20 MG TAB PO SCH ×2 (15:46→22:01)
[2023-04-12] MEDS: Venlafaxine HCl XR 150 MG CAP PO SCH ×2 (15:46→23:23)
[2023-04-12] MEDS: Acetaminophen 325 MG TAB PO PRN ×2 (16:40→22:01)
[2023-04-12] MEDS ORDERED: traMADol HCl 50 MG TAB PO PRN (17:57)
[2023-04-12] MEDS: Atorvastatin Calcium 40 MG TAB PO SCH (22:01)
[2023-04-12] MEDS: Aspirin 81 mg Enteric Coated Tablet PO SCH (22:01)
[2023-04-12 22:31] LABS: Bacteria/HPF 3+ HPF (None Seen); Bilirubin Negative (Negative); Blood, Urine 1+ (Negative); Clarity Clear (Clear); Glucose, Urine (Dipstick) Normal (Negative); Ketone, Urine Negative (Negative); Leukocyte Negative Leu/uL (Negative); Nitrite Negative (Negative); Protein, Urine (Dipstick) Negative (Neg-Trace); Specific Gravity, Urine 1.018 (1.002-1.036); Squamous Epithelial 0-3 HPF (0-3); Urobilinogen Normal mg/dL (Less than 2); WBC/HPF 0-3 HPF (0-3)
[2023-04-12] MEDS: Dronedarone HCl 400 MG TAB PO SCH (23:25)
[2023-04-13 06:22] LABS: Anion Gap 10 mmol/L (10-20); BUN (Urea Nitrogen) 14 mg/dL (9.8-20.1); Calc. Creatinine Clearance 80 mL/min (70-130); Calcium 8.8 mg/dL (7.8-10.44); Carbon Dioxide 22 mmol/L (23-31); Chloride 107 mmol/L (98-107); Estimated GFR 71; Glucose 89 mg/dL (83-110); Magnesium 1.9 mg/dL (1.6-2.6); Sodium 135 mmol/L (136-145)
[2023-04-13] MEDS: Famotidine 20 MG TAB PO SCH (09:00)
[2023-04-13] MEDS: Venlafaxine HCl XR 150 MG CAP PO SCH (09:00)
[2023-04-13] MEDS: Metoprolol Tartrate 25 MG TAB PO SCH (09:01)
[2023-04-13] MEDS: Dronedarone HCl 400 MG TAB PO SCH (09:01)
[2023-04-13 11:49] VITALS: BP 140/77; TEMP 98.9
== END 2023-04-13 12:45 | disposition home or self-care (01) ==
LOC: ERS 15:36 → 2SW 18:49
PROVIDERS: ADMIT Student in an Organized Health Care Education/Training Program; ATTEND Family Medicine
DX: I48.0 Paroxysmal atrial fibrillation (principal); I48.4 Atypical atrial flutter; E78.5 Hyperlipidemia, unspecified; I10 Essential (primary) hypertension; I25.10 Atherosclerotic heart disease of native coronary artery without angina pectoris; K21.9 Gastro-esophageal reflux disease without esophagitis; Z88.8 Allergy status to other drugs, medicaments and biological substances; Z79.82 Long term (current) use of aspirin; Z79.899 Other long term (current) drug therapy; Z86.73 Personal history of transient ischemic attack (TIA), and cerebral infarction without residual deficits; Z98.890 Other specified postprocedural states
CPT/HCPCS: 36415; 71045; 80048; 80053; 81001; 83735; 83880; 84484; 85025; 93005; 96365; 96366; 96367; G0378; J3475

== ENCOUNTER 2023-06-09 12:53 | Inpatient (IN) | payer MEDICARE ==
[2023-06-09 13:27] LABS: #Basophils Less than 0.03 10x3/uL (0.0-0.2); %Basophils 0.3 % (0.0-1.0); %Eosinophils 0.4 % (0.0-10.0); %Lymphocytes 28.1 % (21.0-51.0); %Monocytes 7.2 % (0.0-10.0); %Neutrophils 63.4 % (42.0-75.0); Hematocrit 41.7 % (36.0-47.0); Hemoglobin 13.3 g/dL (12.0-16.0); Mean Corpuscular HGB CONC 31.9 g/dL (32.0-36.0); Mean Corpuscular Hemoglobin 30.9 pg (27.0-31.0); Mean Corpuscular Volume 96.8 fl (78.0-98.0); Mean Platelet Volume 10.8 fL (7.4-10.4); Platelet Count 168 10x3/uL (130-400); RBC Distribution Width 13.7 % (11.5-14.5); Red Blood Cell (RBC) Count 4.31 mill/uL (4.20-5.40)
[2023-06-09 13:48] LABS: INR-International Normal Ratio 1.1; Prothrombin Time 14.3 sec (12.0-14.7)
[2023-06-09 13:49] LABS: ALT (SGPT) 22 U/L (8-55); AST (SGOT) 28 U/L (5-34); Albumin 3.5 g/dL (3.4-4.8); Alkaline Phosphatase 73 U/L (40-110); Anion Gap 12 mmol/L (10-20); BUN (Urea Nitrogen) 19 mg/dL (9.8-20.1); Bilirubin, Total 0.6 mg/dL (0.2-1.2); CK (CPK) 37 U/L (29-168); CRP (Inflammatory) 1.23 mg/dL (= or < 0.5); Calc. Creatinine Clearance 0 mL/min (70-130); Calcium 8.7 mg/dL (7.8-10.44); Carbon Dioxide 22 mmol/L (23-31); Chloride 109 mmol/L (98-107); Estimated GFR 58; Globulin 2.8 g/dL (2.4-3.5); Glucose 90 mg/dL (83-110); Magnesium 1.9 mg/dL (1.6-2.6); PTT 29.3 sec (22.9-36.1); Potassium 4.7 mmol/L (3.5-5.1); Protein, Total 6.3 g/dL (5.8-8.1); Sodium 138 mmol/L (136-145)
[2023-06-09] MEDS ORDERED: dilTIAZem 125 MG/25 ML SDV ONE (14:17)
[2023-06-09 15:23] LABS: Influenza A by NAA Not Detected (NotDetected); Influenza B by NAA Not Detected (NotDetected); SARS-CoV-2 NAA Rapid Test DETECTED (NotDetected)
[2023-06-09] MEDS ORDERED: Acetaminophen 650 MG Suppository PR PRN (15:46)
[2023-06-09] MEDS ORDERED: Acetaminophen 325 MG TAB PO PRN (15:46)
[2023-06-09] MEDS ORDERED: Electrolyte Replacement Protocol FS SCH (15:49)
[2023-06-09] MEDS ORDERED: dilTIAZem 125 MG in Sodium Chloride 0.9% 100 ML IVPB SCH (16:00)
[2023-06-09 17:10] LABS: Lactic Acid 1.1 mmol/L (0.5-2.2)
[2023-06-09 17:14] LABS: Magnesium 1.9 mg/dL (1.6-2.6)
[2023-06-09 17:20] LABS: Troponin I 0.019 ng/mL (< 0.028)
[2023-06-09 17:51] VITALS: BMI 33.3
[2023-06-09] MEDS: Dronedarone HCl 400 MG TAB PO SCH (17:58)
[2023-06-09 20:00] LABS: Troponin I 0.012 ng/mL (< 0.028)
[2023-06-09] MEDS: Aspirin 81 mg Enteric Coated Tablet PO SCH (21:42)
[2023-06-09] MEDS: Atorvastatin Calcium 40 MG TAB PO SCH (21:42)
[2023-06-09] MEDS: dilTIAZem 125 MG, Admixture Fee 1 EACH in Sodium Chloride 0.9% 100 ML IVPB SCH (23:20)
[2023-06-09 23:48] LABS: Bacteria/HPF None Seen HPF (None Seen); Bilirubin Negative (Negative); Blood, Urine Negative (Negative); Clarity Extra Turbid (Clear); Glucose, Urine (Dipstick) Normal (Negative); Ketone, Urine Negative (Negative); Leukocyte 250 Leu/uL (Negative); Nitrite Negative (Negative); Protein, Urine (Dipstick) 10 mg/dL (Neg-Trace); RBC/HPF None Seen HPF (0-3); Specific Gravity, Urine 1.026 (1.002-1.036); Urobilinogen Normal mg/dL (Less than 2); WBC/HPF 21-50 HPF (0-3); pH, Urine 5.5 (5.0-9.0)
[2023-06-10 04:02] LABS: #Basophils 0.03 10x3/uL (0.0-0.2); %Basophils 0.4 % (0.0-1.0); %Eosinophils 1.6 % (0.0-10.0); %Lymphocytes 32.5 % (21.0-51.0); %Monocytes 7.1 % (0.0-10.0); Hematocrit 38.1 % (36.0-47.0); Hemoglobin 12.4 g/dL (12.0-16.0); Mean Corpuscular HGB CONC 32.5 g/dL (32.0-36.0); Mean Corpuscular Hemoglobin 30.4 pg (27.0-31.0); Mean Corpuscular Volume 93.4 fL (78.0-98.0); Platelet Count 150 10x3/uL (130-400); RBC Distribution Width 13.7 % (11.5-14.5); Red Blood Cell (RBC) Count 4.08 mill/uL (4.20-5.40)
[2023-06-10 05:03] LABS: Anion Gap 15 mmol/L (10-20); BUN (Urea Nitrogen) 17 mg/dL (9.8-20.1); Calc. Creatinine Clearance 79 mL/min (70-130); Calcium 8.8 mg/dL (7.8-10.44); Carbon Dioxide 20 mmol/L (23-31); Chloride 110 mmol/L (98-107); Estimated GFR 70; Glucose 94 mg/dL (83-110); Potassium 3.7 mmol/L (3.5-5.1); Sodium 141 mmol/L (136-145)
[2023-06-10] MEDS: Metoprolol Tartrate 25 MG TAB PO SCH ×2 (09:21→10:17)
[2023-06-10] MEDS: Venlafaxine HCl XR 150 MG CAP PO SCH (10:18)
[2023-06-10] MEDS: Fluconazole 100 MG TAB PO SCH (21:58)
[2023-06-11 04:57] LABS: #Basophils Less than 0.03 10x3/uL (0.0-0.2); %Basophils 0.1 % (0.0-1.0); %Eosinophils 2.1 % (0.0-10.0); %Lymphocytes 31.2 % (21.0-51.0); %Monocytes 6.9 % (0.0-10.0); %Neutrophils 59.3 % (42.0-75.0); Hematocrit 34.6 % (36.0-47.0); Hemoglobin 11.5 g/dL (12.0-16.0); Mean Corpuscular HGB CONC 33.2 g/dL (32.0-36.0); Mean Corpuscular Hemoglobin 31.3 pg (27.0-31.0); Mean Platelet Volume 11.3 fL (7.4-10.4); Platelet Count 159 10x3/uL (130-400); RBC Distribution Width 13.6 % (11.5-14.5); Red Blood Cell (RBC) Count 3.68 mill/uL (4.20-5.40)
[2023-06-11 05:31] LABS: Anion Gap 11 mmol/L (10-20); BUN (Urea Nitrogen) 13 mg/dL (9.8-20.1); Calc. Creatinine Clearance 80 mL/min (70-130); Calcium 8.5 mg/dL (7.8-10.44); Carbon Dioxide 20 mmol/L (23-31); Chloride 107 mmol/L (98-107); Estimated GFR 71; Glucose 83 mg/dL (83-110); Potassium 3.5 mmol/L (3.5-5.1); Sodium 134 mmol/L (136-145)
[2023-06-11] MEDS: Venlafaxine HCl XR 150 MG CAP PO SCH (06:25)
[2023-06-11] MEDS: Metoprolol Tartrate 25 MG TAB PO SCH (09:02)
[2023-06-11] MEDS: Potassium Chloride 20 MEQ TAB PO SCH (09:02)
[2023-06-11 09:44] VITALS: TEMP 97.2
[2023-06-11 10:59] VITALS: BP 126/80
== END 2023-06-11 11:30 | disposition home or self-care (01) | DRG 308 ==
LOC: ERS 12:53 → 2NO 15:13
PROVIDERS: ADMIT Internal Medicine; ATTEND Internal Medicine
DX: I48.0 Paroxysmal atrial fibrillation (principal); U07.1 COVID-19; I50.32 Chronic diastolic (congestive) heart failure; E78.5 Hyperlipidemia, unspecified; K21.9 Gastro-esophageal reflux disease without esophagitis; I25.10 Atherosclerotic heart disease of native coronary artery without angina pectoris; I34.0 Nonrheumatic mitral (valve) insufficiency; I11.0 Hypertensive heart disease with heart failure; Z79.891 Long term (current) use of opiate analgesic; Z86.73 Personal history of transient ischemic attack (TIA), and cerebral infarction without residual deficits
CPT/HCPCS: 36415; 71045; 80048; 80053; 81001; 82550; 83605; 83735; 84443; 84484; 85025; 85610; 85730; 86140; 93005; 93306; J3490

== ENCOUNTER 2023-09-08 15:11 | Inpatient (IN) | payer MEDICARE ==
[2023-09-08 15:49] LABS: #Basophils 0.07 10x3/uL (0.0-0.2); %Basophils 0.9 % (0.0-1.0); %Eosinophils 2.2 % (0.0-10.0); %Lymphocytes 41.6 % (21.0-51.0); %Monocytes 9.7 % (0.0-10.0); %Neutrophils 45.3 % (42.0-75.0); Hematocrit 43.4 % (36.0-47.0); Hemoglobin 14.4 g/dL (12.0-16.0); Mean Corpuscular HGB CONC 33.2 g/dL (32.0-36.0); Mean Corpuscular Volume 93.3 fL (78.0-98.0); Mean Platelet Volume 9.6 fL (7.4-10.4); Platelet Count 233 10x3/uL (130-400); RBC Distribution Width 14.2 % (11.5-14.5); Red Blood Cell (RBC) Count 4.65 mill/uL (4.20-5.40)
[2023-09-08] MEDS ORDERED: Digoxin 0.5 MG/2 ML AMP ONE (15:54)
[2023-09-08 16:08] LABS: Bacteria/HPF 4+ HPF (None Seen); Bilirubin Negative (Negative); Blood, Urine Negative (Negative); CAUTI Indications for Culture Dysuria,urgency,freq; Clarity Clear (Clear); Glucose, Urine (Dipstick) Normal (Negative); Ketone, Urine Negative (Negative); Leukocyte 75 Leu/uL (Negative); Nitrite Negative (Negative); Protein, Urine (Dipstick) Negative (Neg-Trace); RBC/HPF 0-3 HPF (0-3); Specific Gravity, Urine 1.024 (1.002-1.036); Urobilinogen Normal mg/dL (Less than 2); pH, Urine 5.5 (5.0-9.0)
[2023-09-08 16:09] LABS: ALT (SGPT) 32 U/L (8-55); AST (SGOT) 26 U/L (5-34); Albumin 3.8 g/dL (3.4-4.8); Alkaline Phosphatase 75 U/L (40-110); Anion Gap 11 mmol/L (10-20); BUN (Urea Nitrogen) 26 mg/dL (9.8-20.1); Bilirubin, Total 0.5 mg/dL (0.2-1.2); Calc. Creatinine Clearance 0 mL/min (70-130); Calcium 9.2 mg/dL (7.8-10.44); Carbon Dioxide 24 mmol/L (23-31); Chloride 107 mmol/L (98-107); Estimated GFR 46; Globulin 3.6 g/dL (2.4-3.5); Glucose 97 mg/dL (83-110); Potassium 4.4 mmol/L (3.5-5.1); Protein, Total 7.4 g/dL (5.8-8.1); Sodium 138 mmol/L (136-145)
[2023-09-08 16:14] LABS: Troponin I Less than 0.010 ng/mL (< 0.028)
[2023-09-08 16:17] LABS: Urine Culture Reflex No No
[2023-09-08] MEDS ORDERED: dilTIAZem 25 MG/5 ML VIAL ONE (19:15)
[2023-09-08] MEDS ORDERED: dilTIAZem 125 MG/25 ML SDV ONE (19:16)
[2023-09-08 20:12] LABS: Troponin I Less than 0.010 ng/mL (< 0.028)
[2023-09-08] MEDS ORDERED: Metoprolol Tartrate 5 MG (5 mL) VIAL ONE (21:01)
[2023-09-08] MEDS ORDERED: Acetaminophen 325 MG TAB PO PRN (21:39)
[2023-09-08] MEDS ORDERED: Ondansetron PF 4 MG/2 ML Vial IVP PRN (21:39)
[2023-09-08 22:13] VITALS: BMI 32.3
[2023-09-08 23:53] LABS: Troponin I Less than 0.010 ng/mL (< 0.028)
[2023-09-09] MEDS: dilTIAZem 125 MG in Sodium Chloride 0.9% 100 ML IVPB SCH (00:02)
[2023-09-09] MEDS ORDERED: dilTIAZem 125 MG in Sodium Chloride 0.9% 100 ML IVPB SCH (04:15)
[2023-09-09 04:19] LABS: #Basophils 0.04 10x3/uL (0.0-0.2); %Basophils 0.6 % (0.0-1.0); %Eosinophils 3.5 % (0.0-10.0); %Monocytes 11.1 % (0.0-10.0); %Neutrophils 40.4 % (42.0-75.0); Hematocrit 41.7 % (36.0-47.0); Hemoglobin 13.6 g/dL (12.0-16.0); Mean Corpuscular HGB CONC 32.6 g/dL (32.0-36.0); Mean Corpuscular Hemoglobin 30.6 pg (27.0-31.0); Mean Corpuscular Volume 93.9 fL (78.0-98.0); Mean Platelet Volume 9.8 fL (7.4-10.4); Platelet Count 207 10x3/uL (130-400); RBC Distribution Width 14.2 % (11.5-14.5); Red Blood Cell (RBC) Count 4.44 mill/uL (4.20-5.40)
[2023-09-09 04:49] LABS: Anion Gap 14 mmol/L (10-20); BUN (Urea Nitrogen) 21 mg/dL (9.8-20.1); Calc. Creatinine Clearance 72 mL/min (70-130); Calcium 8.8 mg/dL (7.8-10.44); Carbon Dioxide 20 mmol/L (23-31); Chloride 108 mmol/L (98-107); Estimated GFR 65; Glucose 71 mg/dL (83-110); Magnesium 1.9 mg/dL (1.6-2.6); Potassium 4.1 mmol/L (3.5-5.1); Sodium 138 mmol/L (136-145)
[2023-09-09] MEDS: Metoprolol Tartrate 50 MG TAB PO SCH ×2 (08:24→21:15)
[2023-09-09] MEDS: Cholecalciferol 1,000 UNITS (25 MCG) TAB PO SCH (08:25)
[2023-09-09] MEDS: Venlafaxine HCl XR 75 MG CAP PO SCH (08:26)
[2023-09-09] MEDS: Dronedarone HCl 400 MG TAB PO SCH (08:28)
[2023-09-09] MEDS: Metoprolol Tartrate 25 MG TAB PO SCH (08:54)
[2023-09-09] MEDS ORDERED: Lidocaine 1% PF 5 ML VIAL ONE (14:22)
[2023-09-09] MEDS ORDERED: PROPOFOL 200 MG/20 ML VIAL ONE (14:22)
[2023-09-09] MEDS: Atorvastatin Calcium 40 MG TAB PO SCH (21:15)
[2023-09-10 04:38] LABS: #Basophils 0.05 10x3/uL (0.0-0.2); %Basophils 0.7 % (0.0-1.0); %Eosinophils 3.5 % (0.0-10.0); %Lymphocytes 38.9 % (21.0-51.0); %Monocytes 11.3 % (0.0-10.0); %Neutrophils 45.3 % (42.0-75.0); Hematocrit 40.1 % (36.0-47.0); Hemoglobin 13.1 g/dL (12.0-16.0); Mean Corpuscular HGB CONC 32.7 g/dL (32.0-36.0); Mean Corpuscular Volume 94.8 fL (78.0-98.0); Platelet Count 200 10x3/uL (130-400); RBC Distribution Width 14.1 % (11.5-14.5); Red Blood Cell (RBC) Count 4.23 mill/uL (4.20-5.40)
[2023-09-10 04:48] LABS: Anion Gap 13 mmol/L (10-20); BUN (Urea Nitrogen) 19 mg/dL (9.8-20.1); Calc. Creatinine Clearance 71 mL/min (70-130); Calcium 8.8 mg/dL (7.8-10.44); Carbon Dioxide 22 mmol/L (23-31); Chloride 109 mmol/L (98-107); Estimated GFR 63; Glucose 80 mg/dL (83-110); Potassium 4.6 mmol/L (3.5-5.1); Sodium 139 mmol/L (136-145)
[2023-09-10] MEDS: Metoprolol Tartrate 25 MG TAB PO SCH (09:00)
[2023-09-10 11:56] VITALS: BP 131/64; TEMP 97.9
== END 2023-09-10 14:18 | disposition home or self-care (01) | DRG 309 ==
LOC: ERS 15:11 → 2NO 19:43
PROVIDERS: ADMIT Internal Medicine; ATTEND Internal Medicine
PROC: 5A2204Z Restoration of Cardiac Rhythm, Single (ICD-10-PCS; principal; 2023-09-09)
PROC: B245ZZ4 Ultrasonography of Left Heart, Transesophageal (ICD-10-PCS; 2023-09-09)
DX: I48.91 Unspecified atrial fibrillation (principal); I50.32 Chronic diastolic (congestive) heart failure; N17.9 Acute kidney failure, unspecified; E78.5 Hyperlipidemia, unspecified; Z96.651 Presence of right artificial knee joint; F32.A Depression, unspecified; I11.0 Hypertensive heart disease with heart failure; E86.0 Dehydration; Z79.82 Long term (current) use of aspirin; Z86.73 Personal history of transient ischemic attack (TIA), and cerebral infarction without residual deficits; Z79.890 Hormone replacement therapy; Z79.01 Long term (current) use of anticoagulants; Z79.899 Other long term (current) drug therapy
CPT/HCPCS: 36415; 36416; 71045; 80048; 80053; 81001; 83735; 83880; 84443; 84484; 85025; 92960; 93005; 93312; J1160; J2704; J3490

== ENCOUNTER 2023-09-22 12:35 | Inpatient (IN) | payer MEDICARE ==
[2023-09-22 13:29] LABS: #Basophils 0.05 10x3/uL (0.0-0.2); %Basophils 0.6 % (0.0-1.0); %Lymphocytes 34.4 % (21.0-51.0); %Monocytes 10.5 % (0.0-10.0); Hematocrit 43.5 % (36.0-47.0); Hemoglobin 14.2 g/dL (12.0-16.0); Mean Corpuscular HGB CONC 32.6 g/dL (32.0-36.0); Mean Corpuscular Hemoglobin 30.7 pg (27.0-31.0); Mean Corpuscular Volume 94.2 fL (78.0-98.0); Mean Platelet Volume 9.4 fL (7.4-10.4); Platelet Count 228 10x3/uL (130-400); RBC Distribution Width 13.9 % (11.5-14.5); Red Blood Cell (RBC) Count 4.62 mill/uL (4.20-5.40)
[2023-09-22 13:53] LABS: ALT (SGPT) 21 U/L (8-55); AST (SGOT) 17 U/L (5-34); Albumin 3.5 g/dL (3.4-4.8); Alkaline Phosphatase 68 U/L (40-110); Anion Gap 13 mmol/L (10-20); BUN (Urea Nitrogen) 18 mg/dL (9.8-20.1); Bilirubin, Total 0.7 mg/dL (0.2-1.2); Calc. Creatinine Clearance 0 mL/min (70-130); Calcium 9.1 mg/dL (7.8-10.44); Carbon Dioxide 21 mmol/L (23-31); Chloride 110 mmol/L (98-107); Estimated GFR 72; Globulin 3.2 g/dL (2.4-3.5); Glucose 82 mg/dL (83-110); Potassium 4.5 mmol/L (3.5-5.1); Protein, Total 6.7 g/dL (5.8-8.1); Sodium 139 mmol/L (136-145)
[2023-09-22 13:55] LABS: Troponin I Less than 0.010 ng/mL (< 0.028)
[2023-09-22] MEDS ORDERED: Metoprolol Tartrate 5 MG (5 mL) VIAL ONE ×2 (14:17→15:52)
[2023-09-22] MEDS ORDERED: Iopamidol-370 76% 500 ML MDV (1 ML CHARGE) ONE (15:51)
[2023-09-22] MEDS ORDERED: dilTIAZem 30 MG TAB PO PRN (17:38)
[2023-09-22 18:13] LABS: Troponin I Less than 0.010 ng/mL (< 0.028)
[2023-09-22] MEDS: Acetaminophen 325 MG TAB PO SCH (18:59)
[2023-09-22 19:41] VITALS: BMI 31.6
[2023-09-22] MEDS: Atorvastatin Calcium 40 MG TAB PO SCH (21:10)
[2023-09-22] MEDS: Aspirin 81 mg Enteric Coated Tablet PO SCH (21:11)
[2023-09-22] MEDS: Famotidine 20 MG TAB PO SCH (21:11)
[2023-09-22 21:34] LABS: Troponin I Less than 0.010 ng/mL (< 0.028)
[2023-09-23] MEDS: Dronedarone HCl 400 MG TAB PO SCH (07:23)
[2023-09-23] MEDS: Enoxaparin 40 MG (0.4 mL) SYRINGE SC SCH (07:23)
[2023-09-23] MEDS: dilTIAZem 30 MG TAB PO SCH (13:38)
[2023-09-24 04:58] LABS: Anion Gap 14 mmol/L (10-20); BUN (Urea Nitrogen) 16 mg/dL (9.8-20.1); Calc. Creatinine Clearance 69 mL/min (70-130); Calcium 9.5 mg/dL (7.8-10.44); Carbon Dioxide 21 mmol/L (23-31); Chloride 108 mmol/L (98-107); Estimated GFR 63; Glucose 100 mg/dL (83-110); Potassium 4.6 mmol/L (3.5-5.1); Sodium 138 mmol/L (136-145)
[2023-09-24] MEDS: Metoprolol Tartrate 50 MG TAB PO SCH (09:10)
[2023-09-25] MEDS: Enoxaparin 80 MG (0.8 mL) SYRINGE SC SCH (10:05)
[2023-09-26] MEDS ORDERED: Protamine Sulfate 50 MG/5 ML VIAL ONE (06:52)
[2023-09-26] MEDS ORDERED: Heparin 10,000 UNITS/ 10 ML VIAL ONE (06:52)
[2023-09-26] MEDS ORDERED: Heparin 25,000 units/D5W 500 ML ONE (06:53)
[2023-09-26] MEDS ORDERED: PHENYLEPHRINE-NS 100 MCG/ML 10 ML SYRINGE ONE (07:16)
[2023-09-26] MEDS ORDERED: fentaNYL 50 mcg/mL 1 mL Vial ONE ×3 (07:59→11:27)
[2023-09-26] MEDS ORDERED: Phenylephrine 10 MG/ML VIAL ONE (08:01)
[2023-09-26] MEDS ORDERED: Ondansetron PF 4 MG/2 ML Vial ONE (08:29)
[2023-09-26] MEDS ORDERED: Dexamethasone 20 MG/5 ML VIAL ONE (08:29)
[2023-09-26] MEDS ORDERED: Rocuronium Bromide 10 MG/ML (10ML VIAL) ONE (08:48)
[2023-09-26] MEDS ORDERED: Lidocaine 1% PF 5 ML VIAL ONE (08:48)
[2023-09-26] MEDS ORDERED: PROPOFOL 200 MG/20 ML VIAL ONE (08:48)
[2023-09-26] MEDS ORDERED: SUGAMMADEX SODIUM 200 MG/2 ML VIAL ONE (10:33)
[2023-09-26 12:53] VITALS: BP 119/80; TEMP 96.8
[2023-09-26] MEDS ORDERED: Apixaban 5 MG TAB PO SCH (21:00)
== END 2023-09-26 16:30 | disposition home or self-care (01) | DRG 274 ==
LOC: ERS 12:35 → 2SE 17:10 → OBSVTOIN 09-23 10:28
PROVIDERS: ADMIT Hospitalist; ATTEND Internal Medicine
PROC: 02573ZK Destruction of Left Atrial Appendage, Percutaneous Approach (ICD-10-PCS; principal; 2023-09-26)
PROC: 4A023FZ Measurement of Cardiac Rhythm, Percutaneous Approach (ICD-10-PCS; 2023-09-26)
PROC: 02K83ZZ Map Conduction Mechanism, Percutaneous Approach (ICD-10-PCS; 2023-09-26)
DX: I48.0 Paroxysmal atrial fibrillation (principal); I50.32 Chronic diastolic (congestive) heart failure; I11.0 Hypertensive heart disease with heart failure; E78.5 Hyperlipidemia, unspecified; I48.92 Unspecified atrial flutter; I25.10 Atherosclerotic heart disease of native coronary artery without angina pectoris; K21.9 Gastro-esophageal reflux disease without esophagitis; G47.33 Obstructive sleep apnea (adult) (pediatric); F17.200 Nicotine dependence, unspecified, uncomplicated; Z79.01 Long term (current) use of anticoagulants; Z86.73 Personal history of transient ischemic attack (TIA), and cerebral infarction without residual deficits; Z88.8 Allergy status to other drugs, medicaments and biological substances; Z79.899 Other long term (current) drug therapy; Z79.82 Long term (current) use of aspirin; Z90.49 Acquired absence of other specified parts of digestive tract
CPT/HCPCS: 36415; 36416; 71045; 71275; 80048; 80053; 83605; 83735; 83880; 84443; 84484; 85025; 85347; 87040; 93005; 93010; 93462; 93613; 93621; 93653; 93662; 96361; 96372; 96374; 96376; C1731; C1732; C1753; C1760; C1893; C1894; C2630; G0378; J1100; J1644; J1650; J2371; J2405; J2704; J2720; J3010; Q9967

== ENCOUNTER 2023-11-09 06:31 | Day surgery (SDC) | payer MEDICARE ==
[2023-11-08 12:38] VITALS: BMI 31.9
[2023-11-09] MEDS ORDERED: Propofol 1,000 MG/100 ML VIAL IV ONE (06:39)
[2023-11-09] MEDS ORDERED: Gentamicin 80 MG/2 ML VIAL ONE (06:50)
[2023-11-09] MEDS ORDERED: CEFAZOLIN 2 GM VIAL ONE (06:50)
[2023-11-09] MEDS ORDERED: Lidocaine 1% PF 5 ML VIAL ONE (07:18)
[2023-11-09] MEDS ORDERED: ePHEDrine Sulfate 50 MG/10 ML VIAL ONE (07:33)
[2023-11-09] MEDS ORDERED: Vancomycin (BATCH) 1.5 GM/300 ML BAG ONE (07:40)
[2023-11-09] MEDS ORDERED: fentaNYL 50 mcg/mL 1 mL Vial ONE (08:14)
[2023-11-09] MEDS ORDERED: CEFAZOLIN 1 GM VIAL ONE ×2 (08:15→08:23)
[2023-11-09] MEDS ORDERED: Propofol 500 MG/50 ML VIAL ONE (09:14)
[2023-11-09] MEDS ORDERED: Iopamidol 370 76% 100 ML VIAL ONE (10:29)
== END 2023-11-09 14:35 | disposition home or self-care (01) ==
LOC: SDC 06:31
PROVIDERS: ATTEND Internal Medicine Cardiovascular Disease
PROC: 0JH606Z Insertion of Pacemaker, Dual Chamber into Chest Subcutaneous Tissue and Fascia, Open Approach (ICD-10-PCS; principal; 2023-11-09)
PROC: 02HL3JZ Insertion of Pacemaker Lead into Left Ventricle, Percutaneous Approach (ICD-10-PCS; 2023-11-09)
PROC: 02HK3JZ Insertion of Pacemaker Lead into Right Ventricle, Percutaneous Approach (ICD-10-PCS; 2023-11-09)
DX: I48.0 Paroxysmal atrial fibrillation (principal); I49.5 Sick sinus syndrome; I48.4 Atypical atrial flutter; I10 Essential (primary) hypertension; E78.5 Hyperlipidemia, unspecified; I87.2 Venous insufficiency (chronic) (peripheral); K21.9 Gastro-esophageal reflux disease without esophagitis; I25.10 Atherosclerotic heart disease of native coronary artery without angina pectoris; I47.20 Ventricular tachycardia, unspecified; G47.33 Obstructive sleep apnea (adult) (pediatric); G45.9 Transient cerebral ischemic attack, unspecified; Z96.651 Presence of right artificial knee joint; Z98.890 Other specified postprocedural states; F17.210 Nicotine dependence, cigarettes, uncomplicated; Z79.01 Long term (current) use of anticoagulants; Z79.82 Long term (current) use of aspirin; Z79.899 Other long term (current) drug therapy; Z95.818 Presence of other cardiac implants and grafts; Z92.89 Personal history of other medical treatment
CPT/HCPCS: 33208; 71045; 93005; C1769; C1894; J0690; J1580; J2704; J3370; C1785; C1898; J3010; Q9967

== ENCOUNTER 2023-12-21 13:42 | Observation (INO) | payer MEDICARE ==
[2023-12-21 14:46] LABS: #Basophils 0.05 10x3/uL (0.0-0.2); %Basophils 0.5 % (0.0-1.0); %Lymphocytes 33.4 % (21.0-51.0); %Monocytes 9.3 % (0.0-10.0); Hemoglobin 14.1 g/dL (12.0-16.0); Mean Corpuscular Hemoglobin 31.6 pg (27.0-31.0); Mean Corpuscular Volume 98.7 fL (78.0-98.0); Mean Platelet Volume 9.3 fL (7.4-10.4); Platelet Count 276 10x3/uL (130-400); RBC Distribution Width 14.9 % (11.5-14.5); Red Blood Cell (RBC) Count 4.46 mill/uL (4.20-5.40)
[2023-12-21 15:15] LABS: Troponin I 0.019 ng/mL (< 0.028)
[2023-12-21 15:17] LABS: ALT (SGPT) 18 U/L (8-55); AST (SGOT) 18 U/L (5-34); Albumin 3.9 g/dL (3.4-4.8); Alkaline Phosphatase 76 U/L (40-110); Anion Gap 14 mmol/L (10-20); BUN (Urea Nitrogen) 27 mg/dL (9.8-20.1); Bilirubin, Total 0.5 mg/dL (0.2-1.2); Calc. Creatinine Clearance 0 mL/min (70-130); Carbon Dioxide 24 mmol/L (23-31); Chloride 106 mmol/L (98-107); Estimated GFR 32; Globulin 3.6 g/dL (2.4-3.5); Glucose 89 mg/dL (83-110); Potassium 4.2 mmol/L (3.5-5.1); Protein, Total 7.5 g/dL (5.8-8.1); Sodium 140 mmol/L (136-145)
[2023-12-21] MEDS ORDERED: dilTIAZem 25 MG/5 ML VIAL ONE (15:25)
[2023-12-21] MEDS ORDERED: Diltiazem HCl/D5W 125 ML ONE (19:19)
[2023-12-21 19:39] LABS: Troponin I 0.016 ng/mL (< 0.028)
[2023-12-21] MEDS ORDERED: Ipratropium/Albuterol 3 ML NEB NEB SCH (20:30)
[2023-12-21 20:34] LABS: Troponin I 0.013 ng/mL (< 0.028)
[2023-12-21] MEDS ORDERED: Apixaban 5 MG TAB PO SCH (21:00)
[2023-12-21] MEDS ORDERED: Ondansetron PF 4 MG/2 ML Vial IVP PRN (21:32)
[2023-12-21] MEDS ORDERED: dilTIAZem 125 MG in Sodium Chloride 0.9% 100 ML IVPB SCH (21:45)
[2023-12-21] MEDS ORDERED: Atorvastatin Calcium 40 MG TAB ONE (23:54)
[2023-12-21] MEDS ORDERED: Aspirin Chewable 81 MG TAB ONE (23:54)
[2023-12-21] MEDS ORDERED: Metoprolol Tartrate 50 MG TAB ONE (23:54)
[2023-12-21] MEDS ORDERED: Amiodarone 200 MG TAB ONE (23:55)
[2023-12-22] MEDS: Atorvastatin Calcium 40 MG TAB PO SCH (00:05)
[2023-12-22] MEDS ORDERED: Aspirin 81 mg Enteric Coated Tablet ONE (00:06)
[2023-12-22] MEDS: Aspirin 81 mg Enteric Coated Tablet PO SCH (00:08)
[2023-12-22] MEDS: Amiodarone 200 MG TAB PO SCH (00:08)
[2023-12-22] MEDS: Lactated Ringer's 1,000 ML IV SCH (00:17)
[2023-12-22 00:25] VITALS: BMI 32.2
[2023-12-22] MEDS ORDERED: Acetaminophen 325 MG TAB ONE (03:27)
[2023-12-22] MEDS: Acetaminophen 325 MG TAB PO PRN (03:41)
[2023-12-22] MEDS ORDERED: Diltiazem HCl/D5W 125 ML ONE (04:02)
[2023-12-22 05:11] LABS: #Basophils 0.05 10x3/uL (0.0-0.2); %Basophils 0.8 % (0.0-1.0); %Eosinophils 3.9 % (0.0-10.0); %Lymphocytes 43.8 % (21.0-51.0); %Monocytes 9.3 % (0.0-10.0); %Neutrophils 41.4 % (42.0-75.0); Hematocrit 38.4 % (36.0-47.0); Hemoglobin 12.5 g/dL (12.0-16.0); Mean Corpuscular HGB CONC 32.6 g/dL (32.0-36.0); Mean Corpuscular Hemoglobin 31.3 pg (27.0-31.0); Mean Platelet Volume 9.6 fL (7.4-10.4); Platelet Count 218 10x3/uL (130-400); RBC Distribution Width 14.6 % (11.5-14.5)
[2023-12-22 05:53] LABS: Anion Gap 12 mmol/L (10-20); BUN (Urea Nitrogen) 22 mg/dL (9.8-20.1); Calc. Creatinine Clearance 59 mL/min (70-130); Calcium 8.7 mg/dL (7.8-10.44); Carbon Dioxide 20 mmol/L (23-31); Chloride 109 mmol/L (98-107); Estimated GFR 54; Glucose 96 mg/dL (83-110); Sodium 137 mmol/L (136-145)
[2023-12-22] MEDS: Ipratropium/Albuterol 3 ML NEB NEB SCH (07:35)
[2023-12-22] MEDS ORDERED: Amiodarone 200 MG TAB ONE (08:27)
[2023-12-22] MEDS: Venlafaxine HCl XR 75 MG CAP PO SCH (09:48)
[2023-12-22] MEDS: Cholecalciferol 1,000 UNITS (25 MCG) TAB PO SCH (09:48)
[2023-12-22 11:21] VITALS: BP 105/78; TEMP 98.2
[2023-12-22] MEDS ORDERED: PROPOFOL 200 MG/20 ML VIAL ONE (11:48)
[2023-12-22] MEDS ORDERED: Lidocaine 1% PF 5 ML VIAL ONE (11:48)
[2023-12-22 11:50] LABS: Bilirubin Negative (Negative); Blood, Urine Negative (Negative); Clarity Clear (Clear); Glucose, Urine (Dipstick) Normal (Negative); Ketone, Urine Negative (Negative); Leukocyte 25 Leu/uL (Negative); Nitrite Negative (Negative); Protein, Urine (Dipstick) Negative (Neg-Trace); RBC/HPF 0-3 HPF (0-3); Specific Gravity, Urine 1.007 (1.002-1.036); Urobilinogen Normal mg/dL (Less than 2); pH, Urine 5.5 (5.0-9.0)
[2023-12-22 11:56] LABS: Bacteria/HPF 1+ HPF (None Seen)
== END 2023-12-22 16:35 | disposition home or self-care (01) ==
LOC: ERS 13:42 → ERHOLD 17:07
PROVIDERS: ADMIT Internal Medicine; ATTEND Hospitalist
PROC: 5A2204Z Restoration of Cardiac Rhythm, Single (ICD-10-PCS; principal; 2023-12-21)
DX: I48.19 Other persistent atrial fibrillation (principal); N17.9 Acute kidney failure, unspecified; I11.0 Hypertensive heart disease with heart failure; I50.32 Chronic diastolic (congestive) heart failure; I49.5 Sick sinus syndrome; E78.5 Hyperlipidemia, unspecified; Z79.899 Other long term (current) drug therapy
CPT/HCPCS: 71045; 80048; 81001; 83735; 84484 ×2; 85025; 92960; 93005; 94640; G0378 ×2; J7120; 36415; 80053; 84443; J2704; J7620

== ENCOUNTER 2024-02-07 11:43 | Emergency (ER) | payer MEDICARE | END 2024-02-07 12:38 | disposition home or self-care (01) | LOC: ERS 11:43 | DX: R05.9 Cough, unspecified (principal); R09.81 Nasal congestion; I10 Essential (primary) hypertension; I48.91 Unspecified atrial fibrillation; F17.210 Nicotine dependence, cigarettes, uncomplicated | CPT/HCPCS: 71046; 87428 ==

== ENCOUNTER 2024-11-05 16:17 | Emergency (ER) | payer MEDICARE ==
[2024-11-05 18:26] LABS: #Basophils 0.06 10x3/uL (0.0-0.2); #Eosinophils 0.33 10x3/uL (0.0-0.7); #Monocytes 0.81 10x3/uL (0.11-0.59); #Neutrophils 4.12 10x3/uL (1.40-6.50); %Basophils 0.7 % (0.0-1.0); %Eosinophils 3.7 % (0.0-10.0); %Lymphocytes 39.9 % (21.0-51.0); %Monocytes 9.1 % (0.0-10.0); %Neutrophils 46.0 % (42.0-75.0); Hematocrit 42.5 % (36.0-47.0); Hemoglobin 13.8 g/dL (12.0-16.0); Mean Corpuscular Hemoglobin 30.9 pg (27.0-31.0); Mean Corpuscular Volume 95.3 fL (78.0-98.0); Platelet Count 212 10x3/uL (130-400); Red Blood Cell (RBC) Count 4.46 mill/uL (4.20-5.40); White Blood Cell (WBC) Count 8.93 10x3/uL (4.8-10.8)
[2024-11-05 18:44] LABS: ALT (SGPT) 12 U/L (Less than 34); AST (SGOT) 19 U/L (11-34); Albumin 4.0 g/dL (3.1-4.5); Alkaline Phosphatase 89 U/L (40-110); Anion Gap 12 mmol/L (10-20); BUN (Urea Nitrogen) 17 mg/dL (9.8-20.1); Bilirubin, Total 0.4 mg/dL (0.3-1.2); Calc. Creatinine Clearance 0 mL/min (70-130); Calcium 9.0 mg/dL (7.8-10.44); Carbon Dioxide 22 mmol/L (23-31); Chloride 110 mmol/L (98-107); Globulin 3.3 g/dL (2.4-3.5); Glucose 84 mg/dL (83-110); Potassium 4.6 mmol/L (3.5-5.1); Sodium 139 mmol/L (136-145)
== END 2024-11-05 18:56 | disposition home or self-care (01) ==
LOC: ERS 16:17
DX: I87.2 Venous insufficiency (chronic) (peripheral) (principal); I10 Essential (primary) hypertension; F17.210 Nicotine dependence, cigarettes, uncomplicated
CPT/HCPCS: 36415; 80053; 83880; 85025

== ENCOUNTER 2025-01-01 12:43 | Outpatient (CLI) | payer MEDICARE | END 2025-01-01 12:44 | disposition home or self-care (01) | LOC: MRI 12:43 | PROVIDERS: ATTEND Orthopaedic Surgery | DX: M51.369 Other intervertebral disc degeneration, lumbar region without mention of lumbar back pain or lower extremity pain (principal); M48.062 Spinal stenosis, lumbar region with neurogenic claudication; M48.07 Spinal stenosis, lumbosacral region | CPT/HCPCS: 72148; 76014 ==